=== PATIENT | female | born 1975 | race Caucasian/White ===

== ENCOUNTER 2017-10-04 11:40 | Emergency (ER) | payer MEDICAID ==
[2017-10-04] MEDS: HYDROCODONE/APAP (5/325) TAB PO (12:40)
== END 2017-10-04 13:29 | disposition home or self-care (01) ==
LOC: E/R 11:40 → FTE 13:29
DX: M25.562 Pain in left knee (principal)
CPT/HCPCS: 73562; 99283-25